=== PATIENT | female | born 1985 | race Caucasian/White ===

== ENCOUNTER → 2019-09-11 11:11 | Outpatient (CLI) | payer OTHER, SELFPAY | PROVIDERS: PCP Nurse Practitioner | DX: Z23 Encounter for immunization (principal) | CPT/HCPCS: 90471; 90686 ==

== ENCOUNTER → 2020-10-08 | Outpatient (CLI) | payer OTHER, SELFPAY | PROVIDERS: PCP Nurse Practitioner; Referring Provider Internal Medicine; Visit Provider Internal Medicine | DX: Z23 Encounter for immunization (principal) | CPT/HCPCS: 90471; 90686 ==

== ENCOUNTER → 2020-12-26 12:52 | Outpatient (CLI) | payer OTHER, SELFPAY ==
--- NOTE | 2020-12-26 12:55 | DIET.PN ---
Dietary Progress Note Assessment: 35y F attending nutrition visit to support her new dx of PCOS. Pt is a nurse here at the hospital but would like advice on healthy way to lose 15# to better manage PCOS. Pt sees doctor Enedelia Menjivar at [facility] down in [place] and sees Cassandra Bull for small things here at . Dx celiac 2001 started really following GF diet in 2004, PCOS a few months ago-hasn't menstruated in 2y HT: 5'1 WT: 133# (has lost 10# in past 2mo but didn't feel in healthy or sustainable way) BMI: 25.1 Labs: fasting BG 96, A1c 4.7 Usual Day: wakes at 5am with wake up light, sleeps well and tries to run 2-3miles 2-3d/w drinks coffee c creamer (half and half, or sweet cream creamer), not usually eating breakfast at this time gets to work between 6-8am noon: goes to cafeteria and gets apple snack pack works through lunch break, not always drinking c lunch, sometimes (can't drink while working) Finishes work between 5-7pm sits down to eat dinner 6-8pm usually- arabic style food: cabbage salad, chicken and broccoli stir beltran, cauliflower, (removed grapefruit and not so much apple and peanut butter, more cheese based foods, egg), not eating much nuts and seeds either goes for walk for 2mi after work or collapse Weekend is primarily same but does housework instead of workplace work. Pt used to use exercise to decompress from mental stress, stopped before nursing school, wasn't safe to run on the roads there does food prep on weekends though still needs to cook it. pt is okay eating same food over and over Doesn't eat: not much corn (certainly not fresh), no gluten When eating breakfast was choosing: yolanda harden Needs to be at work by 8am but often goes in early and stays late, is at her desk all day so gets very little movement during work hours. Pt does walk 8 blocks to work daily. Pt spent most of life prior to 17yo eating once every three days secondary to severe abdominal pain until being dx c celiac, pt has skewed sense of hunger/satiety because of this. Nutrition Diagnosis: nutrition related knowledge deficit r/t new dx polycystic ovarian syndrome aeb pt has tried calorie restriction to lose weight, pt eating one meal and one snack daily, pt avoiding most carbohydrates. RD Impression: Pt has been able to manage (unknowingly) this condition because of being Celiac and enjoying daily running routine. Pt recently gained 25# because of transition in life circumstance leading to the discovery of PCOS after 2y amenhorrhea. Pt very motivated to lose weight as she would like to undergo IVF in a year, however, pt may be too strict c diet which is not supportive of her overall wellness and metabolic health. Interventions: 1. To support PCOS, educated pt on importance of a carb consistent diet and physical activity to maintain insulin sensitivity. Pt already follows carb controlled diet by excluding gluten from diet and does not sub many gluten free foods, generally goes for whole, non-gluten containing foods. Pt has hx of running 5mi/d but has stopped this since nursing school and now, as a nurse c desk job. Pt will fit in short walks during her breaks during work days and will get back into a walking/running routine that feels sustainable. 2. To support pt understanding appropriate meal volume and timing for her body, introduced pt to Hunger Scale. Pt will use scale to learn when she is a [address] at those times rather than at obscure times. Pt will eat to an 8. If pt has food left on plate but is 8, will stop eating, but if ate all her food and not yet an 8, will have more. This is crucial for this pt with traumatic hx of untreated GI sx. 3. To support pts metabolic health and weight regulation efforts, provided pt [id number] cardiometabolic food plan which prioritizes intake of whole, unrefined foods. Pt will use food plan to identify any holes in intake, but also help to prioritize protein foods which pt is lacking, an important macro for PCOS. Pt will also start drinking green and oolong tea to support weight regulation and hydration status. 4. To support the processing of hormones in pts body, provided liver supportive foods handout. Pt noticed she eats many phase 1 foods but very few phase 2 foods. Pt will include acceptable phase two foods in her daily diet. Diet Order: Cardiometabolic food plan EER: ~1500kcals, 60g PRO (1g/kg) Monitoring/Evaluations: f/u in 1mo to assess progress and problem solve barriers.
[2020-12-26 14:13] VITALS: BMI 25.1
== END ==
PROVIDERS: PCP Nurse Practitioner; Referring Provider Nurse Practitioner; Visit Provider Nurse Practitioner
DX: E28.2 Polycystic ovarian syndrome (principal); Z68.25 Body mass index [BMI] 25.0-25.9, adult; Z71.3 Dietary counseling and surveillance
CPT/HCPCS: 97802

== ENCOUNTER → 2021-01-23 09:58 | Outpatient (CLI) | payer OTHER, SELFPAY ==
--- NOTE | 2021-01-23 10:03 | DIET.PN ---
Dietary Progress Note 35y F c Celiac Disease attending f/u appointment for management of PCOS and healthy eating patterns. Pt is leaving her job despite loving the work because of the inability to practice self-care with the rigorous schedule. Pt expresses doing best waking at 6am, eating a healthy breakfast, going for a 5mi run and getting ready for work. For the past year she has been waking early, skipping breakfast, and hasn't had the energy to go on runs leading to weight gain. To address this, pt was being restrictive c PO intake c main meal in evening before bed and had started quickly losing weight but didn't feel it was a sustainable plan. Since our last visit pt started eating breakfast again, usually 1/2c squash hash c eggs, turkey sausage, and greens. She hasn't had the time or energy to run but is feeling more energetic now that she has shifted her main meal to breakfast rather than dinner. Pt has also started drinking mint tea and oolong tea, also cutting back on caffeine with good result. Pt has had a very rigid morning routine in the past and while would like to have a routine, would like it to be more flexible. Pt is taking a few months off to get a good routine going before looking for work which can fit within her self-care goals. Pt is showing good insight into her own health and wellness needs and is developing a more flexible and intuitive relationship with food. Pt will look into the book, The Power of Habits by Devan Steele to support these efforts. Pt will aim for 15-30g CHO at breakfast, consume a lunch, and consume a small dinner daily in addition to regular physical activity as running or hiking. Encouraged pt if she feels things get too rigid, to run a different route or change up the order of her routine. Pt will call to schedule f/us as needed.
== END ==
PROVIDERS: PCP Nurse Practitioner; Referring Provider Nurse Practitioner; Visit Provider Nurse Practitioner
DX: E28.2 Polycystic ovarian syndrome (principal)
CPT/HCPCS: 97803